=== PATIENT | female | born 2000 | race Caucasian/White ===

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

== ENCOUNTER 2023-09-10 15:29 | Emergency (ER) | payer BC ==
[~2023-09-10 15:29] MED LIST changes: +LORazepam 0.5 MG TABLET PO ONE
[2023-10-30 14:56] LABS: URINE APPEARANCE CLEAR (CLEAR); URINE BILIRUBIN NEGATIVE (NEGATIVE); URINE BLOOD NEGATIVE (NEGATIVE); URINE COLOR YELLOW (YELLOW); URINE GLUCOSE NEGATIVE (NEGATIVE); URINE KETONE NEGATIVE (NEGATIVE); URINE LEUKOCYTE ESTERASE NEGATIVE (NEGATIVE); URINE NITRATE NEGATIVE (NEGATIVE); URINE PROTEIN(semi-quant) 2+ (NEGATIVE)
[2023-10-30 14:57] LABS: URINE MUCUS PRESENT (NOT PRESENT)
[2023-10-30 15:01] LABS: ACETAMINOPHEN < 1 ug/mL; ALBUMIN 4.3 g/dL (3.5-5.0); ALCOHOL IN-HOUSE < 10 mg/dL (<10); ALT/SGPT 9 U/L (0-55); AST-SGOT 12 U/L (5-34); CALCIUM 9.2 mg/dL (8.3-10.5); CARBON DIOXIDE 23 mmol/L (22-29); GLUCOSE 134 mg/dL (65-105); SODIUM 139 mmol/L (136-145); TOTAL PROTEIN 6.7 g/dL (6.4-8.3)
[2023-10-30 15:02] LABS: BASO # 0.03 K/mm3 (0.02-0.10); EOS # 0.09 K/mm3 (0.04-0.40); EOS % 1.5 % (1.0-5.0); HEMATOCRIT 38.6 % (37.0-47.0); HEMOGLOBIN 12.9 g/dL (12.5-16.0); LYMPH# 1.51 K/mm3 (1.50-4.00); MEAN CELL VOLUME 97 fl (78-100); MEAN CORPUSCULAR HEMOGLOBIN 32 pg (27-31); MEAN CORPUSCULAR HGB CONC 33 g/dL (33-37); MEAN PLATELET VOLUME 8.9 fl (7.4-10.4); MONO # 0.45 K/mm3 (0.20-0.80); PLATELET COUNT 265 K/mm3 (130-400); RED BLOOD COUNT 3.98 M/mm3 (4.10-5.30); RED CELL DISTRIBUTION WIDTH 11.8 % (11.5-14.5); WHITE BLOOD COUNT 6.1 K/mm3 (4.8-10.8)
== END 2023-09-11 07:15 | disposition home or self-care (01) ==
LOC: ED 15:29
PROVIDERS: Family Medicine
DX: F60.9 Personality disorder, unspecified (principal)

== ENCOUNTER 2024-03-27 20:40 | Emergency (ER) | payer BC ==
[~2024-03-27] VITALS: Ht 172.7 cm; Wt 58.6 kg
[~2024-03-27 20:40] MED LIST changes: -LORazepam 0.5 MG TABLET PO ONE
[2024-03-27] MEDS ORDERED: LAMOTRIGINE100 M3 PO (20:59)
[2024-03-27] MEDS ORDERED: DESVENLAFAXINE100 M3 PO (20:59)
[2024-03-27 21:15] VITALS: BP 131/86
[2024-03-27 21:16] LABS: BASO # 0.03 K/mm3 (0.02-0.10); EOS # 0.01 K/mm3 (0.04-0.40); EOS % 0.1 % (1.0-5.0); HEMATOCRIT 39.5 % (37.0-47.0); HEMOGLOBIN 13.4 g/dL (12.5-16.0); LYMPH# 1.72 K/mm3 (1.50-4.00); MEAN CELL VOLUME 95 fl (78-100); MEAN CORPUSCULAR HEMOGLOBIN 32 pg (27-31); MEAN CORPUSCULAR HGB CONC 34 g/dL (33-37); MEAN PLATELET VOLUME 8.4 fl (7.4-10.4); MONO # 1.44 K/mm3 (0.20-0.80); NEU # 12.66 K/mm3 (1.40-6.50); PLATELET COUNT 304 K/mm3 (130-400); RED BLOOD COUNT 4.14 M/mm3 (4.10-5.30); RED CELL DISTRIBUTION WIDTH 11.7 % (11.5-14.5); WHITE BLOOD COUNT 15.9 K/mm3 (4.8-10.8)
[2024-03-27 21:24] LABS: ALBUMIN 4.9 g/dL (3.5-5.0); SODIUM 140 mmol/L (136-145)
[2024-03-27 21:25] LABS: CALCIUM 9.9 mg/dL (8.3-10.5)
[2024-03-27 21:27] LABS: GLUCOSE 98 mg/dL (65-105); TOTAL PROTEIN 7.9 g/dL (6.4-8.3)
[2024-03-27 21:28] LABS: CARBON DIOXIDE 21 mmol/L (22-29); TOTAL BILIRUBIN 1.3 mg/dL (0.2-1.2)
[2024-03-27 21:30] LABS: ALCOHOL IN-HOUSE < 10 mg/dL (<10)
[2024-03-27 21:32] LABS: AST-SGOT 19 U/L (5-34)
[2024-03-27 21:33] LABS: ALT/SGPT 14 U/L (0-55)
[2024-03-27 21:35] LABS: ACETAMINOPHEN < 1 ug/mL
[2024-03-27 23:45] VITALS: BP 120/81
[2024-03-28 01:30] VITALS: BP 100/58
[2024-03-28 03:00] VITALS: BP 105/73
[2024-03-28 06:00] VITALS: BP 126/83
[2024-03-28 12:00] VITALS: BP 119/75
[2024-03-28 13:00] VITALS: BP 98/57
[2024-03-28 14:00] VITALS: BP 96/56
== END 2024-03-28 15:40 ==
LOC: ED 20:40
PROVIDERS: Physician Assistant
DX: T43.212A Poisoning by selective serotonin and norepinephrine reuptake inhibitors, intentional self-harm, initial encounter (principal); F32.A Depression, unspecified

== ENCOUNTER 2024-03-28 16:16 | Emergency (ER) | payer BC ==
[~2024-03-28 16:16] MED LIST changes: +DESVENLAFAXINE100 M3 PO; +LAMOTRIGINE100 M3 PO
[2024-03-28] MEDS ORDERED: LORazepam 2 MG/ML VIAL IM ONE (23:00)
[2024-03-28] MEDS ORDERED: LORazepam 2 MG/ML VIAL IM PRN (23:45)
[2024-03-29] MEDS ORDERED: Nicotine 7 MG DAILY PATCH TD ONE (00:45)
[2024-03-29] MEDS ORDERED: traZODone 50 MG TAB PO ONE (04:00)
--- NOTE | 2024-03-29 05:01 | NUR ---
PT SLEEPING IN BED WITH SITTING OUTSIDE DOOR BY THIS NURSE, PER PROVIDER APPROVAL OKAY TO HOLD VITALS
--- NOTE | 2024-03-29 07:31 | NUR ---
pt sleeping soundly in bed, currently in PD custody, this nurse and pd standing right outside door
--- NOTE | 2024-03-29 08:03 | NUR ---
pt awaken for vitals, pt wrists brusied from previous nights enocunter with [employer], pt pulses present 2+, cap refill less than 3 seconds, and motor function present. pt denies any burning or tingling.
[2024-03-29 09:11] VITALS: BP 105/70
== END 2024-03-29 09:37 ==
LOC: ED 16:16
DX: T43.212A Poisoning by selective serotonin and norepinephrine reuptake inhibitors, intentional self-harm, initial encounter (principal); F32.A Depression, unspecified; F17.290 Nicotine dependence, other tobacco product, uncomplicated; Z79.899 Other long term (current) drug therapy
CPT/HCPCS: J2060